=== PATIENT | male | born 1990 | race Two or more races ===

== ENCOUNTER → 2020-12-21 09:10 | Outpatient (BNVA) | payer SELFPAY | PROVIDERS: Visit Provider Physician Assistant Medical | DX: Z02.79 Encounter for issue of other medical certificate (principal) ==

== ENCOUNTER 2021-05-14 09:10 | Emergency (ER) | payer OTHER, SELFPAY ==
--- NOTE | ~2021-05-14 | XR_ITS ---
EXAMINATION: XR LUMBOSACRAL SPINE CLINICAL INFORMATION: Low back injury. Pain. COMPARISON: None TECHNIQUE: Three views of the lumbosacral spine. FINDINGS: The vertebral bodies and posterior elements are normal. The disc spaces are preserved and the vertebral alignment is normal. The paraspinal soft tissues are normal. XR/XR lumbar spine 2-3V IMPRESSION: Unremarkable examination.
[2021-05-14 09:15] VITALS: BP 142/90; PULSE 75; RESP 18; TEMP 36.2; O2SAT 97; BMI 45.7
--- NOTE | 2021-05-14 09:44 | ED_ITS ---
HPI - General Adult General Chief complaint: Back Pain/Injury Stated complaint: lower back pain Time Seen by Provider: 05/14/21 09:32 History of Present Illness HPI narrative: 30-year-old male is here today after sustaining injury at work 5 days ago. Patient reports that he bent over to corn picker heavy box and felt pain in his left lower back. 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 Patient reports that his left lower back pain has increased since. Patient reports that the pain radiates down to his left leg. Patient denies any numbness, denies any urinary or fecal incontinence. Patient reports that he was given script for cyclobenzaprine, however he reports that that is making him drowsy and he can only take it before he goes to sleep. Patient would like to take something that would not be drowsy so he can work. Patient denies any nausea, vomiting, constipation, diarrhea. Related Data Previous Rx's Medication Instructions Recorded baclofen 10 mg tablet 10 mg PO BEDTIME #10 tab 05/14/21 ibuprofen 600 mg tablet 600 mg PO Q8H PRN #20 tab 05/14/21 Allergies Allergy/AdvReac Type Severity Reaction Status Date / Time No Known Allergies Allergy Unverified 03/18/20 19:42 [No Known Allergies*] Review of Systems Review of Systems: Constitutional : No Weight loss, No Fever, No Chills, No Night Sweats, No Fatigue, No Malaise ENT/Mouth : No Hearing loss, No Ear Pain, No Nasal Congestion, No Sinus Pain, No Hoarseness, No sore throat, No Rhinorrhea, No Swallowing Difficulty Eyes: No Eye Pain, No Swelling, No Redness, No Foreign Body, No Discharge, No Vision Changes Cardiovascular : No Chest Pain, No SOB, No Dyspnea on Exertion, No Orthopnea, No Edema, No Palpitations Respiratory : No Cough, No Sputum, No Wheezing, No Smoke Exposure, No Dyspnea Gastrointestinal : No Nausea, No Vomiting, No Diarrhea, No Constipation, No abdominal Pain, No Hematochezia, No Melena Genitourinary : no irregular bleeding, No Dysuria, No Urinary Frequency, No Hematuria, No Urinary Incontinence, No Urgency, No Flank Pain, No Urinary Flow Changes, No Hesitancy Musculoskeletal : No joint pain, Myalgias, No Joint Swelling, low back pain radiating to lower extremity Skin : No Skin Lesions, No rash Neuro : No Weakness, No Numbness, No Paresthesias, No Loss of Consciousness, No Dizziness, No Headache Psych : No Anxiety/Panic, No Depression, No SI/HI/AH/VH, No Social Issues, Yes all other systems are reviewed and are negative PMFSH Past Medical History Medical History (Updated 05/14/21 @ 10:26 by Vero Arias [facility]) No known health problems Social History Social History Advance Directives: No Advance Directives Information Provided: No Physical Exam Vital Signs: Vital Signs: Last Vital Signs Temp 97.1 F 05/14/21 09:15 Pulse 75 05/14/21 09:15 Resp 18 05/14/21 10:28 BP 142/90 H 05/14/21 09:15 Pulse Ox 97 05/14/21 09:15 Body Mass Index 45.7 Const: General: healthy appearing, no acute distress and well developed Nutritional Appearance: well nourished Orientation/consciousness: patient oriented x3 HENMT: Head: Yes normal to inspection, Yes normocephalic and Yes atraumatic Face and sinus: Yes normal facial exam Mouth: Normal oral and palatal mucosa present Throat: Yes posterior oropharynx normal, Yes tonsils normal and Yes uvula midline Eyes: General: appearance normal, both eyes and all related structures Neck: Neck: Yes normal visual inspection, Yes full ROM and Yes trachea midline Thyroid: Thyroid normal Resp: Effort & Inspection: normal respiratory effort, able to speak in complete sentences, no tracheal deviation and symmetric chest movement Auscultation: clear to auscultation bilaterally Cardio: Jugular venous distension: no JVD Rate: regular rate Rhythm: regular rhythm Heart sounds: S1 normal heart sound present, S2 normal heart sound present, no gallops and no murmurs GI: Inspection: Yes normal to inspection and No distended Palpation (GI): Soft to palpation, not firm, nontender and No hepatosplenomegaly present Auscultation: normal bowel sounds Back/Spine/Pelvis: Cervical Spine: normal cervical lordosis Thoracic/Lumbar Spine: thoracic and lumbar spine normal to inspection and paraspinal muscle tenderness (Left lumbar region) Sacroiliac joints: on the left nontender Skin: General skin exam: elasticity normal, turgor normal and dry skin Neuro: General: patient oriented x3 Gait exam (Neuro): Normal gait present Motor exam (neuro): 5/5 motor strength present throughout Psych: Appearance: grossly normal Mental Status: mental status grossly normal Speech and movement: Normal speech and movement present Affect: normal affect Attitude: cooperative Thought process: Normal thought process present Thought content: Normal thought content present Insight: Good insight present (Psych) Judgement: Good judgement present (Psych) Course Course Course Narrative: 3-year-old male is here today after sustaining injury 5 days ago. Left lower lumbar region pain, tenderness to paraspinal muscles, no tenderness to IT joint. Patient denies any fecal or urinary incontinence. Reports that the pain radiates down to his left leg. Patient reports that he did have back issues in the past and denies any injuries. 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 Patient is taking cyclobenzaprine at home, however he only can take it when he goes to bed as this medication is making him drowsy. Will do lumbar and spine x-rays. Medicate him with ibuprofen. Discussed with him the importance of using proper body mechanics when lifting objects and avoid bending. Medical Decision Making Imaging Data Lumbar and spine x-ray: Attestation: I personally reviewed and interpreted this imaging study as follows: Radiologist's impression: FINDINGS: The vertebral bodies and posterior elements are normal. The disc spaces are preserved and the vertebral alignment is normal. The paraspinal soft tissues are normal. Discharge Plan Discharge Clinical Impression: Strain of lumbar region Qualifiers: Encounter type: initial encounter Qualified Code(s): S39.012A - Strain of muscle, fascia and tendon of lower back, initial encounter Sciatica Qualifiers: Laterality: left Qualified Code(s): M54.32 - Sciatica, left side Patient Disposition: Home, Self-Care Instructions: Low Back Strain (ED), Back Pain (ED), Lower Back Exercises (ED) Additional Instructions: You were seen here today after low back injury. Your x-ray is negative for any acute findings. Please follow-up with your primary care doctor for further management. You might need physical therapy. Please make sure that you use good body mechanics when picking up heavy objects. You will be given baclofen for pain and you can only used is when you are not driving. You will be giving script for ibuprofen. You will be given number to pain management to help if your back pain will continue. You may return to emergency department if you symptoms will get worse or if you experience any additional concerning symptoms Prescriptions: New baclofen 10 mg tablet 10 mg PO BEDTIME Qty: 10 RF: 0 ibuprofen 600 mg tablet 600 mg PO Q8H PRN (Reason: pain) Qty: 20 RF: 0 Referrals: Dmitri Mcallister MD [Physician] - 2 days (Low back pain, sciatica) Stand Alone Forms: Work/School Release Interventions: ED Discharge Assessment Last Done: 05/14/21 10:32 Discharge Date/Time: 05/14/21 10:34
[2021-05-14] MEDS: Ibuprofen 600 MG TABLET PO (10:03)
[2021-05-14 10:28] VITALS: RESP 18
== END 2021-05-14 10:34 | disposition home or self-care (01) ==
PROVIDERS: Emergency Provider Emergency Medicine Emergency Medical Services
DX: S39.012A Strain of muscle, fascia and tendon of lower back, initial encounter (principal); M54.32 Sciatica, left side; X50.0XXA Overexertion from strenuous movement or load, initial encounter; X50.1XXA Overexertion from prolonged static or awkward postures, initial encounter; Y93.9 Activity, unspecified; Y92.9 Unspecified place or not applicable; Y99.0 Civilian activity done for income or pay; Z79.899 Other long term (current) drug therapy
CPT/HCPCS: 72100; 99283

== ENCOUNTER 2021-06-09 13:00 | Emergency (ER) | payer OTHER, SELFPAY ==
[2021-06-09 14:12] VITALS: BP 143/98; PULSE 100; RESP 18; TEMP 37.3; O2SAT 97; BMI 40.2
[2021-06-09 15:19] LABS: Influenza A PCR NEGATIVE (Negative); Influenza B PCR NEGATIVE (Negative); Resp Syncy Virus RNA Qual PCR NEGATIVE (Negative); SARS COV2 PCR INHOUSE NEGATIVE (Negative)
[2021-06-09 16:00] VITALS: BP 156/100; PULSE 112; RESP 16; TEMP 37.3; O2SAT 100
--- NOTE | 2021-06-09 16:12 | ED.GENADULT ---
HPI - General Adult General Chief complaint: General Medical Stated complaint: flu like Source: patient Mode of arrival: ambulatory Limitations: no limitations History of Present Illness HPI narrative: 30-year-old male presents with 24 hours of fevers, body aches, nausea, vomiting and abdominal pain. Onset (ago): day(s) (1) Location: abdomen Radiation: non-radiation Severity: mild Severity scale (1-10): 6 Quality: aching Pain Consistency: constant Relieving factors: none Exacerbating factors: movement Associated symptoms: fever/chills, malaise and nausea/vomiting Treatments prior to arrival: none Related Data Previous Rx's Medication Instructions Recorded baclofen 10 mg tablet 10 mg PO BEDTIME #10 tab 05/14/21 ibuprofen 600 mg tablet 600 mg PO Q8H PRN #20 tab 05/14/21 Allergies Allergy/AdvReac Type Severity Reaction Status Date / Time No Known Allergies Allergy Verified 06/09/21 14:14 [No Known Allergies*] Review of Systems Review of Systems: Constitutional: positive Fever, positive Chills, positive fatigue, positive Malaise ENT/Mouth: positive sore throat, positive runny nose Eyes: No Discharge Cardiovascular: No Chest Pain, No SOB Respiratory: No Cough, No Sputum, No Wheezing, No Smoke Exposure, No Dyspnea Gastrointestinal: Positive Nausea, positive Vomiting, No Diarrhea, positive abdominal pain Genitourinary: no irregular bleeding, No Dysuria, No Urinary Frequency, No Hematuria, No Urinary Incontinence, No Urgency, No Flank Pain, Musculoskeletal: positive Myalgia Skin: No rash Neuro: No Headache Yes all other systems are reviewed and are negative [facility] Past Medical History Attestation statement: The following information was validated with the patient. Source: old records reviewed Medical History No known health problems Social History Social History Advance Directives: No Advance Directives Information Provided: Yes Physical Exam Vital Signs: Vital Signs: Last Vital Signs Temp 99.2 F 06/09/21 16:00 Pulse 112 H 06/09/21 16:00 Resp 16 06/09/21 16:00 BP 156/100 H 06/09/21 16:00 Pulse Ox 100 06/09/21 16:00 BMI result Body Mass Index 40.2 Appearance: Alert. Oriented X3. No acute distress. Eyes: Pupils equal, round and reactive to light. Sclera nonicteric. ENT: Pharynx normal. Moist mucous membranes. Neck: Normal inspection. Neck supple. No nuchal rigidity. CVS: Tachycardic heart rate and rhythm. No chest wall tenderness to palpation. Respiratory: No respiratory distress. Breath sounds normal. Abdomen: Soft and nontender. Normoactive bowel sounds all 4 quadrants. Skin: Skin warm and dry. Normal skin color. Normal skin turgor. Extremities: No lower extremity edema. Gait well-balanced well coordinated. Moves all extremities against resistance. Neuro: No motor deficit. No sensory deficit. Cranial nerves 2-12 intact. Course Course Course Narrative: 30-year-old male presents with flu-like symptoms for approximately 24 hours. Physical exam is unremarkable. Lab values are normal. COVID test is negative. Symptoms suspicious for viral syndrome. Supportive measures discussed with patient in detail. Will give patient 1 L of normal saline, Tylenol and Zofran. Patient states to feel much better after fluid resuscitation. Patient is afebrile and appears nontoxic. speech pathologist assistant utilized for all correspondence. Google translate utilized for discharge instructions. Patient verbalized understanding of and agrees to plan of care discharge home. Medical Decision Making Differential Diagnosis Differential Diagnosis: Viral syndrome, COVID, dehydration, gastritis Medical Records Medical records reviewed: Yes I reviewed the patient's medical records. Lab Data Lab results reviewed: Yes I reviewed the patient's lab results. Result diagrams: 06/09/21 16:25 06/09/21 16:25 Labs: Lab Results 06/09/21 06/09/21 06/09/21 Range/Units 14:29 16:25 16:25 WBC 10.8 (4.8-10.8) X10*3/uL RBC 5.45 (4.60-5.80) X10*6/uL Hgb 17.1 (14.0-18.0) g/dl Hct 50.6 (42.0-52.0) % MCV 92.8 (80.0-98.0) fL MCH 31.4 (27.0-33.0) pg MCHC 33.8 (31.0-36.0) g/dl RDW 12.4 (11.0-16.0) % Plt Count 311 (160-400) X10*3/uL MPV 9.5 (9.4-12.4) fL Immature Gran % (Auto) 0.6 H (0.0-0.4) % Neut % (Auto) 74.4 H (45-73) % Lymph % (Auto) 14.5 L (20-40) % Navarro % (Auto) 8.6 (2-11) % Eos % (Auto) 1.6 (0-4) % Baso % (Auto) 0.3 (0-2) % Lymph # (Auto) 1.6 (1.2-4.9) X10*3/uL Navarro # (Auto) 0.9 (0.1-1.2) X10*3/uL Eos # (Auto) 0.2 (0.0-0.4) X10*3/uL Baso # (Auto) 0.0 (0.0-0.2) X10*3/uL Abs Immat Gran (auto) 0.07 H (0.00-0.03) X10*3/uL Absolute Neuts (auto) 8.0 (2.0-8.3) x10*3/uL Absolute Nucleated RBC 0.000 (0.0-0.012) X10*3/uL Nucleated RBC % (auto) 0.0 (0.0-0.2) /100WBC Sodium 138 (135-145) mmol/L Potassium 5.0 (3.3-5.1) mmol/L Chloride 107 (96-108) mmol/L Carbon Dioxide 21 L (22-29) mmol/L Anion Gap 15 (12-20) BUN 16 (9-16) mg/dL Creatinine 0.91 (0.5-1.4) mg/dL Estim Creat Clear Calc 122.0 Estimated GFR > 60 Random Glucose 99 (60-115) mg/dL Calcium 9.6 (8.4-10.2) mg/dL Total Bilirubin 0.3 (0.0-1.0) mg/dL Direct Bilirubin 0.2 (0.0-0.5) mg/dL AST 37 (5-37) U/L ALT 56 H (0-40) U/L Alkaline Phosphatase 75 (39-117) U/L Total Protein 8.0 (6.5-8.0) g/dL Albumin 4.5 (3.5-5.0) g/dL Lipase 23 (8-78) U/L Influenza Type A (PCR) NEGATIVE (Negative) Influenza Type B (PCR) NEGATIVE (Negative) RSV RNA Qual (PCR) NEGATIVE (Negative) SARS-CoV-2 RNA (RT-PCR) NEGATIVE (Negative) Discharge Plan Discharge Clinical Impression: Acute viral syndrome Patient Disposition: Home, Self-Care Instructions: Viral Syndrome (ED) Additional Instructions: Se le evalu? por fiebre, herb corporales, n?useas y v?mitos. Los valores de laboratorio est?n dentro de los l?mites normales. La prueba de COVID, RSV e influenza es negativa. Yesenia muchos l?quidos. Alterne Tylenol y Motrin seg?n sea necesario para el manejo de la fiebre y el dolor muscular. Anote a qu? hora harvinder jose g medicamentos para evitar lila sobredosis accidental. Multani ?ltima dosis de Tylenol fue a las 5:30 p.m .. Ivonne por elegir jaspal departamento de emergencias para multani evaluaci?n. Tiffany un seguimiento con multani m?dico de atenci?n primaria seg?n sea necesario. Regrese al departamento de emergencias por cualquier s?ntoma nuevo, preocupante o que empeore. You were evaluated for fevers, body aches, nausea and vomiting. Lab values are within normal limits. COVID, RSV and influenza test is negative. Please drink plenty of fluids. Alternate Tylenol and Motrin as needed for fever and muscle ache management. Write down what time he takes his medications to prevent accidental overdose. Your last dose of Tylenol was at 5:30 p.m.. Thank you for choosing this emergency department for evaluation. Please follow-up with primary care physician as needed. Return to the emergency department for any new, concerning, or worsening symptoms. Prescriptions: No Action baclofen 10 mg tablet 10 mg PO BEDTIME Qty: 10 RF: 0 ibuprofen 600 mg tablet 600 mg PO Q8H PRN (Reason: pain) Qty: 20 RF: 0 Stand Alone Forms: Work/School Release Interventions: ED Discharge Assessment Last Done: 06/09/21 17:55 Discharge Date/Time: 06/09/21 17:59
[2021-06-09 16:31] LABS: MANUAL DIFF FLAG NO
[2021-06-09 16:35] LABS: Basophils Percent Auto 0.3 % (0-2); Eosinophils Absolute Auto 0.2 X10*3/uL (0.0-0.4); Eosinophils Percent Auto 1.6 % (0-4); Hematocrit 50.6 % (42.0-52.0); Hemoglobin 17.1 g/dl (14.0-18.0); Imm Gran Abs Auto 0.07 X10*3/uL (0.00-0.03); Imm Gran Pct Auto 0.6 % (0.0-0.4); Lymphocytes Absolute Auto 1.6 X10*3/uL (1.2-4.9); Lymphocytes Percent Auto 14.5 % (20-40); Mean Corpuscular HGB Conc 33.8 g/dl (31.0-36.0); Mean Corpuscular Hemoglobin 31.4 pg (27.0-33.0); Mean Corpuscular Volume 92.8 fL (80.0-98.0); Mean Platelet Volume 9.5 fL (9.4-12.4); Monocytes Absolute Auto 0.9 X10*3/uL (0.1-1.2); Monocytes Percent Auto 8.6 % (2-11); Neutrophils Percent Auto 74.4 % (45-73); Platelet Count 311 X10*3/uL (160-400); Red Blood Count 5.45 X10*6/uL (4.60-5.80); Red Cell Distribution Width 12.4 % (11.0-16.0); White Blood Count 10.8 X10*3/uL (4.8-10.8)
[2021-06-09] MEDS: 0.9 % Sodium Chloride 1,000 ML 999 ML IVCONT (16:36)
--- NOTE | 2021-06-09 16:37 | PC.NURSE ---
IV inserted, fluids running. Will continue to monitor
[2021-06-09 16:52] LABS: Alanine Aminotransferase 56 U/L (0-40); Albumin Level 4.5 g/dL (3.5-5.0); Alkaline Phosphatase 75 U/L (39-117); Anion Gap 15 (12-20); Aspartate Amino Transferase 37 U/L (5-37); Bilirubin Direct 0.2 mg/dL (0.0-0.5); Bilirubin Total 0.3 mg/dL (0.0-1.0); Blood Urea Nitrogen 16 mg/dL (9-16); Calcium 9.6 mg/dL (8.4-10.2); Carbon Dioxide 21 mmol/L (22-29); Chloride 107 mmol/L (96-108); Estimated Glomerular Filt Rate > 60; Glucose Random 99 mg/dL (60-115); Lipase 23 U/L (8-78); Sodium 138 mmol/L (135-145)
[2021-06-09] MEDS: Acetaminophen 325 MG TABLET 650 MG PO (17:52)
[2021-06-09] MEDS: Ondansetron ODT 4 MG TAB.RAPDIS TRANSLINGU (17:52)
== END 2021-06-09 17:59 | disposition home or self-care (01) ==
PROVIDERS: Nurse Practitioner Family; Emergency Provider Internal Medicine
DX: B34.9 Viral infection, unspecified (principal); Z20.822 Contact with and (suspected) exposure to COVID-19; M79.10 Myalgia, unspecified site; R50.9 Fever, unspecified; R00.0 Tachycardia, unspecified
CPT/HCPCS: 0241U; 36415; 80048; 80076; 83690; 85025; 96360; 99284

== ENCOUNTER → 2022-11-03 13:52 | Outpatient (BNVA) | payer SELFPAY | PROVIDERS: Visit Provider Physician Assistant | DX: Z02.79 Encounter for issue of other medical certificate (principal) ==

== ENCOUNTER 2023-05-25 13:14 | Emergency (ER) | payer OTHER, SELFPAY ==
[2023-05-25 13:19] VITALS: BP 128/73; PULSE 70; RESP 16; TEMP 36.9; O2SAT 99; BMI 41.1
--- NOTE | 2023-05-25 13:25 | ED_ITS ---
HPI - Back Pain/Injury General Chief Complaint: Back Pain/Injury Stated Complaint: back pain Time Seen by Provider: 05/25/23 13:24 Source: patient Mode of arrival: ambulatory Limitations: no limitations History of Present Illness HPI Narrative: Patient is a 32-year-old male presenting to the emergency department with complaint of lower back pain since yesterday. 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 States the pain was gradual onset. He took ibuprofen and use topical icy Hot with little relief. Denies any fever, saddle anesthesia, bowel or bladder incontinence. Denies any urinary symptoms. Reports some radiation to right buttock. MD elicited complaint: back pain Onset (ago): day(s) Timing: constant Severity: severe Similar Symptoms Previously: No Quality: aching Location: right lower back and left lower back Radiation: buttocks (right) Exacerbating factors: movement Relieving factors: none Context: while lifting Associated symptoms: denies other symptoms Treatments prior to arrival: NSAIDS Work related injury: Yes Related Data Previous Rx's Medication Instructions Recorded baclofen 10 mg tablet 10 mg PO BEDTIME #10 tabs 05/14/21 ibuprofen 600 mg tablet 600 mg PO Q8H PRN pain #20 tabs 05/14/21 cyclobenzaprine 5 mg tablet 5 mg PO TID PRN muscle spasm #10 05/25/23 tabs lidocaine 5 % topical patch 1 patch topical DAILY #15 ea 05/25/23 prednisone 20 mg tablet 40 mg (2 x 20 mg) PO DAILY #10 tabs 05/25/23 Allergies Allergy/AdvReac Type Severity Reaction Status Date / Time No Known Allergies Allergy Verified 06/09/21 14:14 [No Known Allergies*] Review of Systems Review of Systems: As per HPI Yes all other systems are reviewed and are negative Constitutional: Constitutional: Reports as per HPI [facility] Past Medical History Medical History No known health problems Physical Exam Vital Signs: Vital Signs: Last Vital Signs Temp 98.4 F 05/25/23 13:19 Pulse 70 05/25/23 13:19 Resp 16 05/25/23 13:19 BP 128/73 05/25/23 13:19 Pulse Ox 99 05/25/23 13:19 O2 Del Method Room Air 05/25/23 13:19 BMI result Body Mass Index 41.1 Vital signs have been reviewed and appear to be correct. Blood pressure normal. Heart rate normal. Respiratory rate normal. Temperature normal. Oxygen saturation normal. Const: General: cooperative, healthy appearing and no acute distress Orientation/consciousness: oriented to person, oriented to place, oriented to time and patient oriented x3 Limitations: no limitations HEENT: Head: Yes normocephalic and Yes atraumatic Ears: external ears normal General nose exam: Normal external nose present Face and sinus: Yes face symmetric Mouth: oropharynx normal and moist mucous membranes Throat: Yes uvula midline Eyes: Pupils: Equal, round and reactive pupils present Neck: Neck: Yes normal visual inspection and Yes supple Resp: Effort & Inspection: normal respiratory effort and able to speak in complete sentences Auscultation: clear to auscultation bilaterally Cardio: Rate: regular rate Rhythm: regular rhythm Heart sounds: S1 normal heart sound present and S2 normal heart sound present GI: Palpation (GI): Soft to palpation and nontender Auscultation: normoactive bowel sounds : General: Yes no CVA tenderness Back/Spine/Pelvis: Back: no CVA tenderness Cervical Spine: normal cervical lordosis, cervical ROM normal, No Cervical spine tenderness and No step off def ormity Thoracic/Lumbar Spine: thoracic and lumbar spine normal to inspection, thoraco-lumbar ROM normal, straight leg raise negative bilaterally, pain with thoraco-lumbar ROM, paraspinal muscle tenderness bilaterally in the mid lumbar, No thoracic spinal tenderness and No lumbar spinal tenderness Pelvis: no pain with anterior-posterior compression and no pain with lateral compression Skin: General skin exam: elasticity normal and turgor normal Neuro: General: oriented to person, oriented to place, oriented to time, patient oriented x3, moves all extremities, no focal motor deficits and CN's II- XI intact bilaterally Cranial nerves: Yes Equal, round and reactive pupils present Cognition (Neuro): normal cognition Extrem: General: Yes full ROM, Yes no pedal edema and Yes no calf tenderness Psych: Mental Status: mental status grossly normal Affect: normal affect Thought process: Normal thought process present Medical Decision Making Medical Decision Making MDM Narrative: Patient is a 32-year-old male presenting to the emergency department with complaint of lower back pain since yesterday. On exam patient is awake, A+Ox3, VS WNL, afebrile, normal neurological exam without focal deficits, physical exam findings as above. Given reported symptoms and physical exam findings, initial differential includes lumbar strain, lumbar radiculopathy. No red flag findings concerning for cauda equina, spinal epidural abscess, cord compression. Will prescribe short course of prednisone, cyclobenzaprine, lidocaine patches. I nstructed patient to follow-up with primary care provider. Return precautions discussed. Patient verbalized understanding of and agreement with plan. Differential Diagnosis Differential Diagnoses: The differential diagnosis associated with the presentation includes As per MDM. External Record Review External record reviewed: Inpatient record, Office record and Outpatient record Prescription Management I considered prescription management with: Pain Medication and Other Discharge Plan Discharge Clinical Impression: Strain of lumbar region Patient Disposition: Home, Self-Care Instructions: Low Back Strain (ED), Acute Low Back Pain (ED) Additional Instructions: You were evaluated in the emergency department today for back pain. Your evaluation did not show signs of medical conditions requiring emergent intervention at this time. We recommended that you use ibuprofen or Tylenol per package directions every 6 hours as needed for pain. If necessary, you can alternate these medications so that you take one medication every 3 hours. For instance, at noon take ibuprofen, then at 3:00 p.m. take Tylenol, then at 6:00 p.m. take ibuprofen. You are being prescribed a short course of steroids to decrease inflammation. You have been prescribed a muscle relaxer which you may take every 8 hours as needed for spasms. You have been prescribed 5% topical lidocaine patches which you can wear for up to 12 hours in a 24 hour period. Do not apply heat directly over the patches. Please schedule an appointment for follow-up with your primary care physician this week for further evaluation of your symptoms. Return to the emergency department if you experience worsening back pain, difficulty walking, fevers, numbness, tingling, incontinence, groin numbness or tingling, or any other concerning symptoms. Prescriptions: New prednisone 20 mg tablet 40 mg PO DAILY Qty: 10 0RF cyclobenzaprine 5 mg tablet 5 mg PO TID PRN (Reason: muscle spasm) Qty: 10 0RF lidocaine 5 % adhesive patch,medicated 1 patch topical DAILY Qty: 15 0RF Rx Instructions: leave on most painful area for up to 12 hrs No Action baclofen 10 mg tablet 10 mg PO BEDTIME Qty: 10 0RF ibuprofen 600 mg tablet 600 mg PO Q8H PRN (Reason: pain) Qty: 20 0RF
== END 2023-05-25 13:39 | disposition home or self-care (01) ==
PROVIDERS: Emergency Provider Emergency Medicine
DX: M54.50 Low back pain, unspecified (principal); Z79.899 Other long term (current) drug therapy
CPT/HCPCS: 99282; 99283